=== PATIENT | male | born 1945 | race Caucasian/White ===

== ENCOUNTER 2017-06-26 08:36 | Day surgery (SDC) | payer MEDICARE, MEDICAID ==
[2017-06-26 09:10] VITALS: BMI 28.7
[2017-06-26] MEDS ORDERED: Lactated Ringer's 500 ML IV ONE (09:25)
[2017-06-26] MEDS ORDERED: Etomidate 20 mg/10ml Inj IV ONE (11:05)
[2017-06-26] MEDS ORDERED: Propofol 10 mg/ml Inj (20 ML) ONE (11:05)
[2017-06-26] MEDS ORDERED: Midazolam 2 MG/2 ML VIAL ONE (11:05)
[2017-06-26 11:28] VITALS: TEMP 96.8; O2SAT 100
[2017-06-26 11:50] VITALS: BP 134/68; PULSE 85; RESP 17
== END 2017-06-26 11:50 | disposition home or self-care (01) ==
LOC: H.ENDO 08:36
PROVIDERS: ATTEND Internal Medicine Gastroenterology
DX: K44.9 Diaphragmatic hernia without obstruction or gangrene (principal); I10 Essential (primary) hypertension; I25.2 Old myocardial infarction; E78.5 Hyperlipidemia, unspecified; E11.51 Type 2 diabetes mellitus with diabetic peripheral angiopathy without gangrene; K29.50 Unspecified chronic gastritis without bleeding; D64.9 Anemia, unspecified
CPT/HCPCS: 43239; 82948; 88305; J2250; J2704; J7120